=== PATIENT | male | born 1955 | race Caucasian/White ===

== ENCOUNTER 2019-03-11 18:09 | Inpatient (IN) | payer BC ==
[2019-03-11 18:35] LABS: #Basophils 0.1 thou/uL (0.0-0.2); #Eosinphils 0.1 thou/uL (0.0-0.7); #Lymphocytes 2.7 thou/uL (1.20-3.40); #Monocytes 0.6 thou/uL (0.11-0.59); #Neutrophils 3.4 thou/uL (1.40-6.50); %Basophils 0.7 % (0.0-1.0); %Neutrophils 49.3 % (42.0-75.0); Hemoglobin 15.9 g/dL (14.0-18.0); Mean Corpuscular HGB CONC 33.9 g/dL (32.0-36.0); Mean Corpuscular Hemoglobin 33.9 pg (27.0-31.0); Mean Platelet Volume 7.7 fL (7.4-10.4); Platelet Count 217 thou/uL (130-400); RBC Distribution Width 11.6 % (11.5-14.5); Red Blood Cell (RBC) Count 4.68 mill/uL (4.70-6.10); White Blood Cell (WBC) Count 6.8 thou/uL (4.8-10.8)
[2019-03-11 18:57] LABS: ALT (SGPT) 17 U/L (8-55); AST (SGOT) 21 U/L (5-34); Albumin 4.8 g/dL (3.4-4.8); Alkaline Phosphatase 48 U/L (40-150); Anion Gap 14 mmol/L (10-20); BUN (Urea Nitrogen) 14 mg/dL (8.4-25.7); Bilirubin, Total 1.1 mg/dL (0.2-1.2); Calc. Creatinine Clearance 0 mL/min (70-130); Calcium 10.1 mg/dL (7.8-10.44); Carbon Dioxide 26 mmol/L (23-31); Chloride 106 mmol/L (98-107); Estimated GFR-MDRD 70; Globulin 2.4 g/dL (2.4-3.5); Glucose 101 mg/dL (80-115); Protein, Total 7.2 g/dL (5.8-8.1); Sodium 142 mmol/L (136-145)
--- NOTE | 2019-03-11 19:12 | RAD ---
PORTABLE CHEST: HISTORY: Elevated heart rate. FINDINGS: Heart size and mediastinum are within normal limits. Lungs are clear of infiltrates. No significant bony findings. IMPRESSION: No active intrathoracic disease. POS: SAIMA
[2019-03-11 21:16] VITALS: BMI 26.5
[2019-03-11] MEDS ORDERED: Diltiazem 125 MG in Sodium Chloride 0.9% 100 ML IVPB SCH (21:45)
[2019-03-11] MEDS ORDERED: Enoxaparin Sodium 80 MG/0.8 ML SYRINGE SC SCH (22:00)
[2019-03-11] MEDS ORDERED: Ondansetron PF 4 MG/2 ML Vial IVP PRN (22:25)
[2019-03-11] MEDS ORDERED: Ondansetron ODT 4 MG TAB PO PRN (22:25)
[2019-03-11] MEDS ORDERED: Acetaminophen 325 MG TAB PO PRN (22:25)
[2019-03-11 23:14] LABS: Troponin I 0.038 ng/mL (< 0.028)
[2019-03-12 01:49] LABS: #Basophils 0.1 thou/uL (0.0-0.2); #Eosinphils 0.2 thou/uL (0.0-0.7); #Lymphocytes 1.9 thou/uL (1.20-3.40); #Monocytes 0.6 thou/uL (0.11-0.59); %Basophils 0.9 % (0.0-1.0); %Eosinophils 2.8 % (0.0-10.0); %Monocytes 10.1 % (0.0-10.0); %Neutrophils 52.1 % (42.0-75.0); Hemoglobin 14.2 g/dL (14.0-18.0); Mean Corpuscular HGB CONC 34.1 g/dL (32.0-36.0); Mean Corpuscular Hemoglobin 34.2 pg (27.0-31.0); Mean Platelet Volume 7.9 fL (7.4-10.4); Platelet Count 183 thou/uL (130-400); RBC Distribution Width 11.7 % (11.5-14.5); Red Blood Cell (RBC) Count 4.16 mill/uL (4.70-6.10); White Blood Cell (WBC) Count 5.7 thou/uL (4.8-10.8)
[2019-03-12 02:13] LABS: Troponin I 0.022 ng/mL (< 0.028)
[2019-03-12 02:17] LABS: Anion Gap 12 mmol/L (10-20); BUN (Urea Nitrogen) 14 mg/dL (8.4-25.7); Calc. Creatinine Clearance 91 mL/min (70-130); Calcium 9.1 mg/dL (7.8-10.44); Carbon Dioxide 22 mmol/L (23-31); Chloride 113 mmol/L (98-107); Estimated GFR-MDRD 84; Glucose 124 mg/dL (80-115); Potassium 3.9 mmol/L (3.5-5.1); Sodium 143 mmol/L (136-145)
--- NOTE | 2019-03-12 05:49 | HP ---
PRIMARY CARE PHYSICIAN: Dr. Romero Hobbs. CHIEF COMPLAINT: Lightheadedness. HISTORY OF PRESENT ILLNESS: Mr. Barnrad is a pleasant 64-year-old male with a past medical history of hyperlipidemia and hypertension, who had presented to [facility] after he experienced some lightheadedness earlier this morning. He had checked his blood pressure and his heart rate and found that his heart rate was fast in the 140s. He had called into his propagation worker office, Dr. Centeno who had recommended he seek further medical workup in the ED. The patient was seen in the emergency department. His chest x-ray showed no active intrathoracic disease. He was found to be in atrial flutter with RVR with rates in the 140s. He was given a single bolus of IV Cardizem 20 mg, his rate improved into the 70s and 80s. Blood pressures remained stable, at that time he had denied any fever, chills, any further lightheadedness, any headache, blurred vision, or dizziness. He had denied any chest pain, palpitations, shortness of breath, abdominal pain, nausea, or vomiting. He had no numbness, tingling, and he had essentially denied all other symptoms. It was determined that patient be admitted for further observation and management of his symptoms. REVIEW OF SYSTEMS: All other systems reviewed and found to be negative unless mentioned in the HPI. PAST MEDICAL HISTORY: Hypertension, hyperlipidemia. PAST SURGICAL HISTORY: None. PSYCHIATRIC HISTORY: None. SOCIAL HISTORY: The patient admits to drinking socially roughly once a week. However, denies any tobacco or illicit drug use. The patient lives at home with his . KNOWN ALLERGIES: None. CURRENT HOME MEDICATIONS: 1. Aspirin 81 mg p.o. daily. 2. Simvastatin 20 mg p.o. daily. 3. Valsartan 160 mg p.o. daily. PHYSICAL EXAMINATION: VITAL SIGNS: BP 116/70, pulse 61, respirations 12, temp 98.7 degrees Fahrenheit, O2 saturations 95% on room air. GENERAL: The patient is awake, alert, and oriented x3. He is currently lying comfortably in bed and in no acute distress. His is sitting at bedside. HEENT: Atraumatic, normocephalic. Pupils are round and reactive to light. Extraocular muscles intact. Moist mucous membranes noted. NECK: Soft and supple. No JVD. Trachea midline. CARDIOVASCULAR: Positive S1 and S2. Irregularly irregular rhythm noted, currently with rates in the 60s to low one 100s on the monitor. No murmur auscultated. RESPIRATORY: Clear to auscultation bilaterally. No wheezes, rales, or rhonchi. ABDOMEN: Soft, nontender. Bowel sounds present. MUSCULOSKELETAL: Strength 5+ bilaterally in upper and lower extremities. Moves all extremities equal. No edema noted. NEUROLOGIC: Cranial nerves 2 through 12 grossly intact. No focal deficits noted. Speech intact and normal. Gait not assessed. SKIN: Warm, dry, and intact. No ulcerations. No rashes noted. PSYCHIATRIC: Good mood and affect. LABORATORY DATA: WBC 6.8, RBC 4.68, hemoglobin 15.9, platelet 217. Sodium 142, potassium 4.0, anion gap 14, BUN 14, creatinine 1.06, glucose 101, troponin 0.012. TSH 2.88. DIAGNOSTIC IMAGING: Portable chest x-ray showed no active intrathoracic disease. ASSESSMENT/PLAN: 1. Acute atrial fibrillation with rapid ventricular response, the patient's rates improved with a bolus of IV Cardizem 20 mg in the ED, he will be placed on IV Cardizem drip dosed at 5 mg an hour. He will also be given IV Lovenox dosed at 1 mcg/kg twice daily. Cardiology services will be consulted for further evaluation. The patient remains in atrial fibrillation on the monitor with a controlled rate. 2. History of hypertension. The patient's blood pressure and other vital signs stable at this time. He will be continued on his home medications. 3. History of hyperlipidemia. Continue home regimen. 4. Deep venous thrombosis and gastrointestinal prophylaxis. 5. Code status. Full code. 6. Disposition: Pending further workup and clinical findings. Job ID: [id number]
[2019-03-12 06:18] LABS: Magnesium 2.2 mg/dL (1.6-2.6); Phosphorus 3.1 mg/dL (2.3-4.7)
[2019-03-12] MEDS ORDERED: Aspirin 81 mg Enteric Coated Tablet PO SCH (09:00)
[2019-03-12] MEDS ORDERED: Enoxaparin Sodium 80 MG/0.8 ML SYRINGE SC SCH (09:00)
[2019-03-12] MEDS ORDERED: PROPOFOL 200 MG/20 ML VIAL ONE (09:45)
[2019-03-12] MEDS ORDERED: Ketamine 50 MG/ML (10ML VIAL) ONE (10:22)
[2019-03-12] MEDS ORDERED: PROPOFOL 20 ML ONE (10:22)
[2019-03-12] MEDS ORDERED: Valsartan 80 MG TAB ONE (12:53)
[2019-03-12] MEDS: Magnesium Oxide 250 MG TAB PO SCH (12:59)
[2019-03-12] MEDS: Enoxaparin Sodium 80 MG/0.8 ML SYRINGE SC SCH ×2 (13:03→20:48)
--- NOTE | 2019-03-12 13:27 | CON ---
DATE OF CONSULTATION: 03/12/2019 REASON FOR CONSULTATION: Atrial flutter and atrial fibrillation. HISTORY OF PRESENT ILLNESS: Mr. Barnard is a 64-year-old gentleman. He felt lightheaded yesterday and took his blood pressure. His blood pressure was relatively low in the 110 systolic range, but the pulse was 146 on his monitor. This persisted and he came to the emergency room. He was found to be in atrial flutter with a rate of 150. The patient ultimately received Cardizem 20 mg intravenously and was started on a drip at 5 mg/hour. In the middle of night, the patient had multiple pauses, looks like when he got up to telemetry, he was in atrial fibrillation. A rhythm strip at 2254 hours shows atrial fibrillation and actually looked when the Cardizem was even started at 2222 hours, he was still in fibrillation at that time. The patient had multiple pauses up to 3.6 seconds. Cardizem was stopped. The patient is currently in atrial fibrillation with a somewhat rapid ventricular response of 120. He is asymptomatic. There is also a pause of 3.8 seconds. He is asymptomatic now. There was another pause at 3:10 a.m. of 4.1 seconds. I do not see any pauses in the last few hours. The last pause that I see documented was 3:52 a.m., but actually another one at 4:19 of 3.1 seconds. The patient is resting comfortably now. Past history is history of hypertension. History of hypercholesterolemia. He was found on routine blood test, found to have an increased BNP. Most recent evaluation, he underwent treadmill testing in January 2018, he went 10 minutes on a Lokesh protocol. No chest pain or pressure. Normal treadmill. He underwent an echocardiography in February 2018; ejection fraction 55% to 60%, [id number] mitral regurgitation noted, normal aortic valve structure and function, mild tricuspid insufficiency with normal pulmonary artery pressure. Past history are hypertension and hypercholesterolemia. REVIEW OF SYSTEMS: CONSTITUTIONAL: No significant weight gain or loss. VISION: No changes. HEARING: No changes. PULMONARY: No cough or wheezing. GASTROINTESTINAL: No nausea, vomiting, or diarrhea. SKIN: No rashes. NEUROLOGIC: No unilateral weakness or numbness. PSYCHIATRIC: No unusual depression or anxiety. MEDICATIONS: Prior to admission, the patient was taking; 1. Valsartan 160 mg a day. 2. Simvastatin 20 mg a day. 3. Magnesium. 4. Aspirin 81 mg a day. ALLERGIES: NONE KNOWN. PHYSICAL EXAMINATION: GENERAL: This is a pleasant 64-year-old man, in no distress. VITAL SIGNS: Blood pressure 129/80, pulse was 80 earlier and now it is 100 to 110, it is atrial fibrillation. EYES: Sclerae nonicteric. MOUTH: Mucous membranes moist. NECK: Supple. No lymphadenopathy. LUNGS: Clear. CARDIAC: Irregularly irregular. There is no murmur, rub, or gallop. ABDOMEN: Soft and nontender. EXTREMITIES: No clubbing or cyanosis. There is no edema. DIAGNOSTIC DATA: EKG initially showed classic atrial flutter with a rate of 150, typical appearing atrial flutter. Subsequent EKGs that showed atrial fibrillation with pauses. ASSESSMENT: 1. Atrial flutter with a very rapid rate. 2. Atrial fibrillation. 3. Multiple pauses while on Cardizem low-dose. PLAN: Electrophysiologic consult consideration for ablation, may need pacemaker insertion if pauses persist. Job ID: [id number]
[2019-03-12 13:55] LABS: #Basophils 0.1 thou/uL (0.0-0.2); #Eosinphils 0.1 thou/uL (0.0-0.7); #Lymphocytes 1.6 thou/uL (1.20-3.40); #Monocytes 0.4 thou/uL (0.11-0.59); #Neutrophils 2.8 thou/uL (1.40-6.50); %Basophils 1.2 % (0.0-1.0); %Eosinophils 1.2 % (0.0-10.0); %Lymphocytes 32.5 % (21.0-51.0); %Monocytes 7.4 % (0.0-10.0); %Neutrophils 57.7 % (42.0-75.0); Hemoglobin 14.5 g/dL (14.0-18.0); Mean Corpuscular HGB CONC 34.2 g/dL (32.0-36.0); Mean Corpuscular Hemoglobin 34.4 pg (27.0-31.0); Platelet Count 183 thou/uL (130-400); RBC Distribution Width 11.6 % (11.5-14.5); Red Blood Cell (RBC) Count 4.23 mill/uL (4.70-6.10); White Blood Cell (WBC) Count 4.9 thou/uL (4.8-10.8)
[2019-03-12 14:00] LABS: PTT 29.1 SEC (22.9-36.1); Prothrombin Time 13.6 SEC (12.0-14.7)
[2019-03-12 14:07] LABS: Anion Gap 12 mmol/L (10-20); BUN (Urea Nitrogen) 11 mg/dL (8.4-25.7); Calc. Creatinine Clearance 97 mL/min (70-130); Calcium 9.1 mg/dL (7.8-10.44); Carbon Dioxide 23 mmol/L (23-31); Chloride 111 mmol/L (98-107); Estimated GFR-MDRD 90; Glucose 98 mg/dL (80-115); Potassium 4.2 mmol/L (3.5-5.1); Sodium 142 mmol/L (136-145)
--- NOTE | 2019-03-12 16:27 | PDOC.PN ---
- Subjective Encounter Start Date: 03/12/19 Encounter Start Time: 15:25 Subjective: Patient reports no complaints at present. He states he immediately felt -: better since converting to NSR. His HR has remained in the 70s. -: Denies any chest pain or sob. No longer feels lightheaded. Denies any nausea or vomiting. Has tolerated lunch without difficulty. No bowel movement since yesterday morning and usually goes every am but denies any abdominal pain. Feels it is due to not eating last night. No urinary symptoms. - Objective Resuscitation Status - Order Detail: 03/11/19 22:25 Resuscitation Status Routine Co-Sign Provider: Resuscitation Status: FULL: Full Resuscitation Vital Signs & Weight: Vital Signs (12 hours) Temp Pulse Resp BP Pulse Ox 03/12/19 15:20 97.8 F 76 16 115/66 96 03/12/19 11:48 97.8 F 67 16 125/88 98 03/12/19 07:48 98.2 F 79 15 129/80 96 Weight Weight 174 lb 8 oz I&O: 03/11/19 03/12/19 03/13/19 06:59 06:59 06:59 Intake Total 259 Output Total 450 300 Balance -191 -300 Result Diagrams: 03/12/19 13:17 03/12/19 13:17 Phys Exam - Physical Examination Constitutional: NAD HEENT: PERRLA Neck: full ROM Respiratory: clear to auscultation bilateral Cardiovascular: RRR Gastrointestinal: soft, non-tender, no distention, positive bowel sounds Musculoskeletal: no edema Neurological: non-focal, normal sensation, moves all 4 limbs Psychiatric: normal affect, A&O x 3 Skin: no rash, normal turgor Dx/Plan (1) Atrial fibrillation with rapid ventricular response Code(s): I48.91 - UNSPECIFIED ATRIAL FIBRILLATION Status: Resolved (2) Hypertension Code(s): I10 - ESSENTIAL (PRIMARY) HYPERTENSION Status: Chronic (3) Hyperlipidemia Code(s): E78.5 - HYPERLIPIDEMIA, UNSPECIFIED Status: Chronic - Plan cont current plan of care s/p Echo with 55-60% EF. Moderately dilated LA, and mild TR. -: For possible ablation tomorrow morning. -: Plan as per Cardiology/EP. -: Patient without any complaints. -: Continue to monitor. * . Review of Systems - Review of Systems Constitutional: negative: fever, chills, sweats, weakness, malaise, other Eyes: negative: Pain, Vision Change, Conjunctivae Inflammation, Eyelid Inflammation, Redness, Other ENT: negative: Ear Pain, Ear Discharge, Nose Pain, Nose Discharge, Nose Congestion, Mouth Pain, Mouth Swelling, Throat Pain, Throat Swelling, Other Respiratory: negative: Cough, Dry, Shortness of Breath, Hemoptysis, SOB with Excertion, Pleuritic Pain, Sputum, Wheezing Cardiovascular: negative: chest pain, palpitations, orthopnea, paroxysmal nocturnal dyspnea, edema, light headedness, other Gastrointestinal: negative: Nausea, Vomiting, Abdominal Pain, Diarrhea, Constipation, Melena, Hematochezia, Other Genitourinary: negative: Dysuria, Frequency, Incontinence, Hematuria, Retention , Other Musculoskeletal: negative: Neck Pain, Shoulder Pain, Arm Pain, Back Pain, Hand Pain, Leg Pain, Foot Pain, Other Skin: negative: Rash, Lesions, Yakov, Bruising, Other Neurological: negative: Weakness, Numbness, Incoordination, Change in Speech, Confusion, Seizures, Other - Medications/Allergies Allergies/Adverse Reactions: Allergies Allergy/AdvReac Type Severity Reaction Status Date / Time No Known Allergies Allergy Unverified 03/11/19 21:27 Medications: Current Medications Acetaminophen (Tylenol) 650 mg PO Q4H PRN PRN Reason: Headache/Fever/Mild Pain (1-3) Aspirin (Ecotrin) 81 mg PO DAILY [facility] Last Admin: 03/12/19 12:59 Dose: 81 mg Enoxaparin Sodium (Lovenox) 80 mg SC 0900,2100 [facility] Last Admin: 03/12/19 13:03 Dose: 80 mg Magnesium Oxide (Magnesium Oxide) 250 mg PO DAILY [facility] Last Admin: 03/12/19 12:59 Dose: 250 mg Ondansetron HCl (Zofran Odt) 4 mg PO Q6H PRN PRN Reason: Nausea/Vomiting Ondansetron HCl (Zofran) 4 mg IVP Q6H PRN PRN Reason: Nausea/Vomiting Valsartan 160 Mg Tab 0 each PO DAILY [facility] Last Admin: 03/12/19 13:01 Dose: 1 each Simvastatin 20 Mg (Tabs) 0 each PO QPM [facility]
--- NOTE | 2019-03-12 16:42 | OP ---
DATE OF PROCEDURE: 03/12/2019 PROCEDURE PERFORMED: Transesophageal echocardiogram. INDICATION: This is a 64-year-old gentleman with typical atrial flutter. DESCRIPTION OF PROCEDURE: The patient was taken to the PACU. The patient was sedated by Anesthesiology. A transesophageal probe was placed into the distal esophagus and stomach. Echocardiographic images were obtained. The transesophageal probe was removed. FINDINGS: 1. Normal left ventricular systolic function. 2. Left ventricle is not dilated. 3. Mild left atrial enlargement. 4. Normal mitral aortic valve. 5. Mild mitral regurgitation. 6. No formed thrombus in the left atrial or left atrial appendage. 7. Atherosclerotic debris in the descending aorta. IMPRESSION: No formed thrombus in the left atrial or left atrial appendage. Job ID: [id number]
[2019-03-12] MEDS ORDERED: SIMVASTATIN 20 MG PO SCH (21:00)
[2019-03-12] MEDS ORDERED: Atorvastatin Calcium 10 MG TAB PO SCH (21:00)
[2019-03-13] MEDS: Magnesium Oxide 250 MG TAB PO SCH (08:29)
--- NOTE | 2019-03-13 08:59 | PRG ---
DATE OF SERVICE: 03/13/2019 SUBJECTIVE: Mr. Barnard is doing well today. No complaints. He is awaiting his ablation. OBJECTIVE: VITAL SIGNS: Blood pressure 110/64 and pulse 60. LUNGS: Clear. CARDIAC: Normal S1 and normal S2. ABDOMEN: Soft and nontender. ASSESSMENT: 1. Paroxysmal atrial flutter, now in sinus rhythm. 2. Paroxysmal atrial fibrillation, which he went into after being in atrial flutter for quite some time. PLAN: 1. He will undergo atrial flutter ablation. 2. Likely, we will go on Eliquis 5 mg twice a day starting tomorrow and stop aspirin. 3. Continue previous blood pressure medications. Other medicines are unchanged. See us in the office in a couple of weeks. ADDENDUM: We will avoid diltiazem in this gentleman. He developed severe pauses when in atrial fibrillation. If he has recurrent atrial fibrillation, consideration for LOW-DOSE BETA-BLOCKERS, would not use any digoxin or Cardizem. Job ID: [id number]
[2019-03-13] MEDS ORDERED: Heparin 10,000 UNITS/1 ML VIAL ONE (10:33)
--- NOTE | 2019-03-13 10:46 | PDOC.PN ---
- Subjective Encounter Start Date: 03/13/19 Encounter Start Time: 10:45 Subjective: Mr. Barnard is feeling well and without any complaints. Eager to move -: forward with ablation today. Denies any issues overnight. -: Able to move his bowels this morning and reports soft stools. No episodes of arrhythmia overnight. Denies any chest pain or sob. Has been up and walking without any dizziness/lightheadedness. - Objective Resuscitation Status - Order Detail: 03/11/19 22:25 Resuscitation Status Routine Co-Sign Provider: Resuscitation Status: FULL: Full Resuscitation Vital Signs & Weight: Vital Signs (12 hours) Temp Pulse Resp BP Pulse Ox 03/13/19 09:17 98.9 F 66 16 118/63 96 03/13/19 04:00 98.0 F 60 20 110/64 97 Weight Weight 174 lb 8 oz I&O: 03/12/19 03/13/19 03/14/19 06:59 06:59 06:59 Intake Total 259 860 Output Total 450 1270 Balance -191 -410 Result Diagrams: 03/12/19 13:17 03/12/19 13:17 Phys Exam - Physical Examination Constitutional: NAD HEENT: PERRLA, moist MMs, oral pharynx no lesions Neck: no nodes, supple, full ROM Respiratory: no wheezing, no rales, no rhonchi, clear to auscultation bilateral Cardiovascular: RRR Gastrointestinal: soft, non-tender, no distention, positive bowel sounds Musculoskeletal: no edema, pulses present Neurological: non-focal, normal sensation, moves all 4 limbs Lymphatic: no nodes Psychiatric: normal affect, A&O x 3 Skin: no rash, normal turgor Dx/Plan (1) Atrial fibrillation with rapid ventricular response Code(s): I48.91 - UNSPECIFIED ATRIAL FIBRILLATION Status: Resolved Plan: Patient presented in Aflutter, followed by prolonged episode of Afib. Converted to NSR, and no further episodes since. Will be undergoing ablation today. Per patient he will follow-up with Dr. Centeno as an outpatient, then continue cardio fup in [place]. (2) Hypertension Code(s): I10 - ESSENTIAL (PRIMARY) HYPERTENSION Status: Chronic Plan: BP well controlled. Continue to monitor. (3) Hyperlipidemia Code(s): E78.5 - HYPERLIPIDEMIA, UNSPECIFIED Status: Chronic - Plan cont current plan of care Repeat labs requested for today (CBC and BMP) -: Patient eager for discharge later today. Disposition, as per Dr. Centeno. Review of Systems - Review of Systems Constitutional: negative: fever, chills, sweats, weakness, malaise Eyes: negative: Pain, Vision Change, Conjunctivae Inflammation, Eyelid Inflammation, Redness ENT: negative: Ear Pain, Ear Discharge, Nose Pain, Nose Discharge, Nose Congestion, Mouth Pain, Mouth Swelling, Throat Pain, Throat Swelling Respiratory: negative: Cough, Dry, Shortness of Breath, Hemoptysis, SOB with Excertion, Pleuritic Pain, Sputum, Wheezing Cardiovascular: negative: chest pain, palpitations, orthopnea, paroxysmal nocturnal dyspnea, edema, light headedness Gastrointestinal: negative: Nausea, Vomiting, Abdominal Pain, Diarrhea, Constipation, Melena, Hematochezia Genitourinary: negative: Dysuria, Frequency, Incontinence, Hematuria, Retention Musculoskeletal: negative: Neck Pain, Shoulder Pain, Arm Pain, Back Pain, Hand Pain, Leg Pain, Foot Pain Skin: negative: Rash, Lesions, Bruising Neurological: negative: Weakness, Numbness, Incoordination, Change in Speech, Confusion, Seizures - Medications/Allergies Allergies/Adverse Reactions: Allergies Allergy/AdvReac Type Severity Reaction Status Date / Time No Known Allergies Allergy Unverified 03/11/19 21:27 Medications: Current Medications Acetaminophen (Tylenol) 650 mg PO Q4H PRN PRN Reason: Headache/Fever/Mild Pain (1-3) Apixaban (Eliquis) 5 mg PO BID [facility] Magnesium Oxide (Magnesium Oxide) 250 mg PO DAILY [facility] Last Admin: 03/13/19 08:29 Dose: Not Given Ondansetron HCl (Zofran Odt) 4 mg PO Q6H PRN PRN Reason: Nausea/Vomiting Ondansetron HCl (Zofran) 4 mg IVP Q6H PRN PRN Reason: Nausea/Vomiting Valsartan 160 Mg Tab 0 each PO DAILY [facility] Last Admin: 03/13/19 08:29 Dose: Not Given Simvastatin 20 Mg (Tabs) 0 each PO QPM [facility] Last Admin: 03/12/19 20:48 Dose: 1 each
[2019-03-13] MEDS ORDERED: Propofol 500 MG/50 ML VIAL ONE (11:29)
[2019-03-13] MEDS ORDERED: Fentanyl 100 MCG/2 ML VIAL ONE (11:29)
[2019-03-13] MEDS ORDERED: Isoproterenol 0.2 MG/1 ML AMP ONE (12:04)
[2019-03-13] MEDS ORDERED: Morphine Sulfate 2 MG/ML SYRINGE SLOW IVP PRN (12:37)
[2019-03-13] MEDS ORDERED: Ondansetron HCl/PF 4 MG/2 ML Vial IVP PRN (12:37)
[2019-03-13] MEDS ORDERED: Promethazine HCl 25 MG/ML VIAL SLOW IVP PRN (12:37)
[2019-03-13] MEDS ORDERED: Promethazine HCl 25 MG/ML VIAL IM PRN (12:37)
[2019-03-13] MEDS ORDERED: HYDROmorphone 2 MG/ML VIAL SLOW IVP PRN (12:37)
--- NOTE | 2019-03-13 13:54 | RAD ---
EXAM: CHEST ONE VIEW HISTORY: Post cardiac device placement COMPARISON: 03/11/2019 FINDINGS: The cardiac silhouette and pulmonary vasculature is within normal limits. There is minimal linear ate lectasis at the left lung base. The lungs are otherwise clear. Mild degenerative changes are seen in the spine. Chest is overall stable when compared to prior exam. IMPRESSION: No acute cardiopulmonary process.
[2019-03-13 14:43] LABS: #Eosinphils 0.1 thou/uL (0.0-0.7); #Lymphocytes 1.3 thou/uL (1.20-3.40); #Monocytes 0.3 thou/uL (0.11-0.59); #Neutrophils 2.4 thou/uL (1.40-6.50); %Basophils 0.8 % (0.0-1.0); %Eosinophils 1.8 % (0.0-10.0); %Lymphocytes 31.8 % (21.0-51.0); %Monocytes 7.5 % (0.0-10.0); %Neutrophils 58.2 % (42.0-75.0); Hemoglobin 13.8 g/dL (14.0-18.0); Mean Corpuscular HGB CONC 33.8 g/dL (32.0-36.0); Mean Corpuscular Hemoglobin 33.8 pg (27.0-31.0); Mean Corpuscular Volume 99.9 fL (78.0-98.0); Mean Platelet Volume 7.6 fL (7.4-10.4); Platelet Count 161 thou/uL (130-400); RBC Distribution Width 11.3 % (11.5-14.5); Red Blood Cell (RBC) Count 4.09 mill/uL (4.70-6.10); White Blood Cell (WBC) Count 4.2 thou/uL (4.8-10.8)
[2019-03-13 14:58] LABS: Anion Gap 11 mmol/L (10-20); BUN (Urea Nitrogen) 11 mg/dL (8.4-25.7); Calc. Creatinine Clearance 107 mL/min (70-130); Calcium 9.1 mg/dL (7.8-10.44); Carbon Dioxide 24 mmol/L (23-31); Chloride 112 mmol/L (98-107); Estimated GFR-MDRD Greater than 90; Glucose 93 mg/dL (80-115); Potassium 4.5 mmol/L (3.5-5.1); Sodium 142 mmol/L (136-145)
--- NOTE | 2019-03-13 14:58 | OP ---
DATE OF PROCEDURE: 03/13/2019 PROCEDURE PERFORMED: 1. Comprehensive electrophysiology study with induction of arrhythmia. 2. Comprehensive electrophysiology study with left atrial pacing/recording with induction of arrhythmia. 3. Three dimensional mapping of tachycardia. 4. Radiofrequency ablation of supraventricular tachycardia (atrial flutter). 5. Repeat electrophysiology testing post ablation. 6. Drug stimulation x1. 7. Ultrasound-guided femoral venous access. SEDATION: Per the Anesthesia Service. DRUG STIMULATION: Isoproterenol 5 mcg bolus. DESCRIPTION OF PROCEDURE: Mr. Barnard was brought to the EP lab in a postabsorptive nonsedated state and placed supine on the fluoro table. The right groin was prepped and draped in usual sterile fashion. Local anesthesia was achieved with 10 mL of 1% lidocaine. Via the modified Seldinger technique using separate sticks with ultrasound guidance, the right femoral vein was cannulated x3 with two #6 and one #8 Macanese sheaths placed in this vessel. Via the 6-Macanese sheath, deflectable decapolar EP catheters were placed in the coronary sinus for left atrial pacing and recording and draped along the marjorie terminalis. Left and right atrial and right ventricular programmed with extra stimulation. An overdrive pacing was performed in the baseline state. There was inducible typical counterclockwise atrial flutter, consistent with the patient's presenting arrhythmia. The cavotricuspid isthmus was therefore targeted for ablation. The right groin #8-Macanese sheath was exchanged for a "RAMP-1" long introducer sheath, placed over guidewire to the right atrium. Through this sheath, the ablation catheter Biosense Bran, 8-mm solid tip catheter was placed at the tricuspid anulus. Utilizing the Biosense bran "CARTO' advanced 3-dimensional electroanatomical mapping, the cavotricuspid isthmus was carefully mapped. Radiofrequency ablation lesions were then delivered. We then applied bridging in the tricuspid anulus to the eustachian ridge. This resulted in termination of atrial flutter and creation of bidirectional cavotricuspid isthmus block. During waiting period, repeat electrophysiologic testing was performed in the baseline state and following infusion of isoproterenol. There was no other inducible arrhythmia and no arrhythmia substrates identified. Bidirectional isthmus block was maintained. The catheters were then withdrawn and sheaths removed with hemostasis achieved with Perclose suture devices at the vascular access sites. Mr. Barnard tolerated the procedure very well and returned to the recovery area in excellent condition. FINDINGS: 1. Baseline intervals; sinus cycle length 745 milliseconds, HI interval 155 milliseconds, QRS interval 95 milliseconds, QT interval 388 milliseconds, AH interval 77 milliseconds, HV interval 45 milliseconds. 2. AV node electrophysiology; the AV block cycle length is 350 milliseconds, the AV node ERP at a drive cycle length of 600 was 260 msec. There was no retrograde VA conduction. Dual AV node physiology was not present. There was no evidence of accessory pathway conduction. 3. HV interval; the HV interval is 45 milliseconds and infra-His block was not present characteristics of arrhythmias, typical counterclockwise atrial flutter with a cycle length of 220 milliseconds was inducible with burst atrial pacing. This was consistent with the patient's clinical arrhythmia. 4. Radiofrequency ablation: Radiofrequency ablation lesions were delivered to the cavotricuspid isthmus with lesions bridging the tricuspid anulus to the eustachian ridge. There were 10 applications of radiofrequency energy for a total of 7.2 minutes. IMPRESSION: 1. Typical counterclockwise atrial flutter, status post successful radiofrequency ablation. 2. Creation of bidirectional cavotricuspid isthmus block. 3. No other inducible arrhythmia. PLAN: 1. Bedrest x2 hours. 2. Anticipate discharge home later today. 3. Return to clinic in 6 weeks. 4. Monitor for potential development of atrial fibrillation going forward. Job ID: [id number]
[2019-03-13 15:13] VITALS: BP 134/75; TEMP 98.7
--- NOTE | 2019-03-13 15:20 | CON ---
DATE OF CONSULTATION: REASON FOR CONSULTATION: Atrial flutter. HISTORY OF PRESENT ILLNESS: I was asked by Dr. Centeno to provide electrophysiological consultation for Mr. Barnard, a very pleasant 64-year-old gentleman with a history of palpitations in the past and possible atrial arrhythmia. He was admitted on 03/12 with rapid tachy-palpitations, and was found to be what appears to be consistent with typical counterclockwise atrial flutter with 2:1 AV conduction at a rate of 145 to 150 beats per minute. Rate control agents were initiated. Ultimately, this was degenerated into atrial fibrillation. He underwent transesophageal echocardiography yesterday by Dr. Yinka Giron and was cardioverted. He is in sinus rhythm this morning. He is feeling well today. He has a history of normal left ventricular systolic function and no coronary artery disease. He has a history of hypertension and hyperlipidemia, but has been quite healthy. He denies any CVA or TIA like symptoms. PAST MEDICAL HISTORY: 1. Atrial flutter as described. 2. Essential hypertension. 3. Hyperlipidemia. ADMIT MEDICATIONS: 1. Aspirin. 2. Simvastatin. 3. Valsartan. ALLERGIES: NONE. FAMILY HISTORY: No family history of arrhythmias. SOCIAL HISTORY: No ethanol or tobacco. 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 REVIEW OF SYSTEMS: A 12-point system review was discussed with Mr. Barnard. Aside from his rhythm related symptoms, otherwise negative. PHYSICAL EXAMINATION: VITAL SIGNS: Blood pressure is 120/76, pulse is 60 and regular. GENERAL: He is alert and oriented with appropriate affect. HEENT: Moist mucous membranes. Nonicteric sclerae. NECK: No bruits. Normal thyroid. No JVD. CHEST: Clear to auscultation in all brown. HEART: Regular rate and rhythm without murmurs, gallops, or rubs. PMI is nondisplaced. ABDOMEN: Bowel sounds positive and normoactive. Nontender. No hepatosplenomegaly or masses. EXTREMITIES: No clubbing, cyanosis, or edema. NEUROLOGIC: Grossly intact. LABORATORY DATA: EKG on admission demonstrates what appears to represent typical counterclockwise atrial flutter with 2:1 AV conduction with ventricular rate of 150 beats per minute. Other labs: WBC 6.8, hemoglobin 15.9, hematocrit 46.8. Potassium 3.9, BUN 40, creatinine 0.9. IMPRESSION: 1. Typical atrial flutter. 2. Atrial fibrillation, possibly secondary to #1. RECOMMENDATIONS: I had a long discussion with Mr. Barnard and his regarding options of management. I explained that typical atrial flutter is recurring arrhythmia and very difficult to control with antiarrhythmic drugs. I agree with Dr. Centeno that the best terminal makeup operator approach to management of this dysrhythmia would be via ablation of the cavotricuspid isthmus. I have described the rationale for radiofrequency ablation to and Ms. Barnard along with the risks involved. The risks include but not limited to bleeding, infection, damage to blood vessels, pericardial tamponade, stroke, myocardial infarction, and . They would like to proceed. We also discussed the possibility of coexisting atrial fibrillation. It may be that the atrial flutter was triggered by an episode of atrial fibrillation, but by the same token, the atrial flutter could have degenerated to atrial fibrillation. In any case, I have encouraged them to have a mechanism to record any future episodes of tachy-palpitations ([employer] Watch or Opez device) and should atrial fibrillation present itself, we could certainly consider him for other antiarrhythmic drug therapy for suppression of AFib or alternatively ablation that was atrial fibrillation substrate. Job ID: [id number]
[2019-03-13] MEDS ORDERED: PROPOFOL 200 MG/20 ML VIAL ONE (16:20)
[2019-03-14] MEDS ORDERED: Apixaban 5 MG TAB PO SCH (21:00)
--- NOTE | 2019-03-16 15:37 | DIS ---
DATE OF ADMISSION: 03/12/2019 DATE OF DISCHARGE: 03/13/2019 CONSULTING PHYSICIANS: 1. Dr. Centeno, Cardiology. 2. Dr. Johnson, EP. DISCHARGE DIAGNOSES: 1. Atrial flutter. 2. Atrial fibrillation. 3. Essential hypertension. 4. Hyperlipidemia. HOSPITAL COURSE: Mr. Barnard is a pleasant 64-year-old man who presented with palpitations and was admitted after found to be in atrial flutter with a heart rate in the 140s to 150s range. The patient was initiated on Cardizem and received a dose of 20 mg IV then started on a drip of 5 mg/hour. He was noted to have multiple pauses and once in telemetry, noted to be in atrial fibrillation. The multiple pauses extended up to 3.6 seconds. The Cardizem was therefore stopped. The patient eventually converted to normal sinus rhythm with the heart rate in the 70s. He was evaluated by EP, electrophysiology, for consideration of ablation. On 03/12/2019, he underwent a transesophageal echocardiogram which showed normal left ventricular systolic function, normal left ventricle size without dilation. Mild left atrial enlargement. Normal mitral and aortic valves and mild mitral regurgitation. There was no thrombus present in the left atrial or left atrial appendage. There were atherosclerotic debris in the descending aorta. On 03/13/2019, the patient underwent cardioversion. He remained in normal sinus rhythm since. He was then taken for radiofrequency ablation as this was advised for long-term management of dysrhythmia given the risk of recurring atrial flutter. The patient was observed for 4 hours following the procedure and has been cleared by Dr. Centeno for discharge home today with instructions to resume blood pressure medication tomorrow as well as Eliquis. REVIEW OF SYSTEMS: The patient states he feels well on himself and is without any complaints. He denies having any chest pain, palpitations, or shortness of breath. No headaches or dizziness. No nausea or vomiting. He had something to eat yesterday since the ablation without any nausea or vomiting. Has moved his bowels as normal this morning. Denies having any urinary symptoms. Has remained afebrile. No lower leg pain or swelling. All other review of systems are negative. PHYSICAL EXAMINATION: GENERAL: The patient appears well developed, well nourished. he is in no acute distress. VITAL SIGNS: Temperature 98.7, pulse 60, respirations 16, O2 saturation 100% on room air, blood pressure 134/75. HEENT: Normocephalic and atraumatic. Pupils are equal, round, and reactive to light. Sclerae are without icterus. Oropharynx is clear. NECK: Supple without lymphadenopathy. LUNGS: Clear to auscultation bilaterally without wheezes, rales, or rhonchi. CARDIAC: Regular rate and rhythm without audible murmurs, rubs, or gallops. ABDOMEN: Soft, nontender, nondistended. Normoactive bowel sounds present. EXTREMITIES: No edema. Neurologic: Alert and oriented x3. SKIN: Without rash or jaundice. CONDITION: Stable at discharge. ACTIVITY: As tolerated. DIET: Heart healthy. DISCHARGE MEDICATIONS: The patient was given a prescription by Dr. Centeno for Eliquis 5 mg by mouth twice daily. Advised to resume blood pressure medicine tomorrow. Advised to resume all other home medications. FOLLOWUP: The patient advised to follow up with his primary care physician within 1 week. He will follow up with Dr. Centeno in 2 weeks' time and has a followup scheduled with Cardiology in [place]. DISPOSITION: The patient medically cleared for discharge home on 03/13/2019. Job ID: [id number]
== END 2019-03-13 17:50 | disposition home or self-care (01) | DRG 274 ==
LOC: ERS 18:09 → 2SW 21:06 → OBSVTOIN 03-12 09:56 → 2NO 03-12 11:49
PROVIDERS: ADMIT Emergency Medicine; ATTEND Emergency Medicine
PROC: B24BZZ4 Ultrasonography of Heart with Aorta, Transesophageal (ICD-10-PCS; 2019-03-12)
PROC: 02583ZZ Destruction of Conduction Mechanism, Percutaneous Approach (ICD-10-PCS; principal; 2019-03-13)
PROC: 4A023FZ Measurement of Cardiac Rhythm, Percutaneous Approach (ICD-10-PCS; 2019-03-13)
PROC: 4A0234Z Measurement of Cardiac Electrical Activity, Percutaneous Approach (ICD-10-PCS; 2019-03-13)
PROC: 02K83ZZ Map Conduction Mechanism, Percutaneous Approach (ICD-10-PCS; 2019-03-13)
DX: I48.3 Typical atrial flutter (principal); I48.0 Paroxysmal atrial fibrillation; I10 Essential (primary) hypertension; E78.5 Hyperlipidemia, unspecified; Z79.82 Long term (current) use of aspirin; Z79.899 Other long term (current) drug therapy
CPT/HCPCS: 36415; 71045; 76942; 80048; 80053; 83735; 84100; 84443; 84484; 85025; 85610; 85730; 93005; 93010; 93306; 93312; 93613; 93621; 93623; 93653; 96361; 96374; C1730; C1760; C1769; J1644; J1650; J2704; J3010; J3490

== ENCOUNTER 2019-09-13 08:12 | Emergency (ER) | payer BC, MEDICARE | END 2019-09-13 08:42 | disposition home or self-care (01) | LOC: ERS 08:12 | DX: Z00.00 Encounter for general adult medical examination without abnormal findings (principal); I10 Essential (primary) hypertension; I48.91 Unspecified atrial fibrillation; I48.92 Unspecified atrial flutter | CPT/HCPCS: 93005 ==